=== PATIENT | female | born 2000 | race Caucasian/White ===

== ENCOUNTER 2019-02-20 19:00 | Observation (INO) ==
[2019-02-20] MEDS ORDERED: 0.9 % Sodium Chloride 1,000 ML IVC ONE ×2 (19:55→22:25)
[2019-02-20] MEDS ORDERED: Ondansetron 4 MG/2 ML VIAL IVP ONE (19:55)
[2019-02-20] MEDS ORDERED: cefTRIAXone 1,000 MG in 0.9 % Sodium Chloride Mini Bag 100 ML IVPB ONE (19:55)
[2019-02-20 20:34] LABS: Bilirubin,Urine Small (Negative); Blood,Urine Trace (Negative); Clarity,Urine Turbid (Clear); Color,Urine Orange (Yellow); Glucose,Urine (UA) Normal (Normal); Ketones,Urine Trace mg/dL (Negative); Leukocyte Esterase,Urine Large (Negative); Nitrite,Urine Positive (Negative); PH,Urine 5.5 pH Units (5.0-8.0); Protein,Urine 100 mg/dL (Neg-Trace); Specific Gravity,Urine 1.019 (1.010-1.025); Urobilinogen,Urine Normal (Normal)
[2019-02-20 20:36] LABS: Bacteria,Urine Moderate per hpf (None-Few); Squamous Epithelial Cell,Urine Many per lpf (None-Few); WBC,Urine TNTC per hpf (0-3)
[2019-02-20 20:45] LABS: Hematocrit 38.2 % (35.3-44.9); Hemoglobin 12.5 g/dL (11.5-15.4); Mean Corpuscular HGB Conc 32.7 g/dL (31.6-35.5); Mean Corpuscular Hemoglobin 29.6 pg (28.0-33.3); Mean Corpuscular Volume 90.5 fL (83.0-100.0); Mean Platelet Volume 11.2 fL (9.4-12.4); Platelet Count 185 K/mcL (140-400); Red Blood Count 4.22 M/mcL (3.82-4.97); Red Cell Distribution Width 13.5 % (11.5-14.5); White Blood Count 20.7 K/mcL (4.3-11.1)
--- NOTE | 2019-02-20 20:47 | Emergency Department Note ---
Disposition Clinical Impression: Pyelonephritis Disposition: Admitted As Inpatient Condition: Fair Instructions: Urinary Tract Infection in Women (ED) Referrals: Yakelin Benavides CNP [Primary Care Provider] - Time of Disposition: 20:30 General Adult HPI - General Chief complaint: ED Urogenital-Female Stated complaint: fever,vomiting Time Seen by Provider: 02/20/19 19:18 Source: patient Limitations: no limitations Nursing Notes Reviewed: Yes Vital Signs Reviewed: Yes - History of Present Illness HPI Narrative: 18-year-old female presents emergency Department with concerns of back pain, abdominal pain, dysuria. Patient was seen in urgent care yesterday and diagnosed with a urinary tract infection. She has a history of pyelonephritis in the past. She states she is taken 2 doses of Cipro over the past 24 hours however she was unable to tolerate the medication today and vomited despite taking Zofran. Patient reports fevers throughout the day, took ibuprofen prior to arrival to the emergency department. Pain Scale: 6 - Related Data Home Medications Medication Instructions Recorded Confirmed Acetaminophen [Tylenol] 1,000 mg PO Q6HR PRN 02/20/19 02/20/19 Ciprofloxacin HCl [Cipro] 500 mg PO BID 02/20/19 02/20/19 Cranberry Conc/C/Bacill Coag [Azo 2 tab PO TID PRN 02/20/19 02/20/19 Cranberry Tablet] Ibuprofen [Motrin] 1 tab PO TID PRN 02/20/19 02/20/19 Norgestimate-Ethinyl Estradiol 1 tab PO DAILY 02/20/19 02/20/19 [Sprintec 28 Day Tablet] Ondansetron ODT [Zofran ODT] 4 mg SL QID PRN 02/20/19 02/20/19 Allergies Allergy/AdvReac Type Severity Reaction Status Date / Time No Known Allergies Allergy Verified 02/20/19 19:03 All systems ED: reviewed and negative except as stated. Review of Systems: As Per HPI Past Medical History - Past Medical History Attestation: Yes The following information was validated with the patient. Source: patient Medical history: Reports: no medical history Psychiatric history: Reports: no psych history - Social History Smoking Status: Never smoker Alcohol use: Reports: none Drug use: Reports: none Physical Exam General: Alert and in no acute distress Skin: Warm, dry, intact Head: Normocephalic and atraumatic Neck: Supple, trachea midline and no tenderness Cardiovascular: Tachycardia, no murmur, normal perfusion Respiratory: CTAB, no wheezing, cough, or respiratory distress Musculoskeletal: Normal strength, CVA tenderness worse on right GI: Soft, tenderness to palpation of the suprapubic region without evidence of rigidity, guarding, rebound. nondistended. Bowel sounds present Neuro: A&O to person, place, time and situation. No focal deficits noted on exam Psychiatric: cooperative and appropriate mood and affect. - General Limitations: no limitations General appearance: alert, in no apparent distress Course Vital Signs Temperature 98.4 F 02/20/19 19:04 Pulse Rate 114 02/20/19 19:04 Respiratory Rate 15 02/20/19 19:04 Blood Pressure 115/75 02/20/19 19:04 O2 Sat by Pulse Oximetry 100 02/20/19 19:04 Temperature 98.4 F 02/20/19 20:00 Pulse Rate 103 02/20/19 20:26 Respiratory Rate 15 02/20/19 20:00 Blood Pressure 120/77 02/20/19 20:26 O2 Sat by Pulse Oximetry 100 02/20/19 20:26 Oxygen Delivery Oxygen Delivery Room Air Medical Decision Making - [facility] Narrative Medical decision making narrative: Patient was given ceftriaxone and a liter fluid in the emergency department. She will likely has pyelonephritis. She is not tolerating by mouth intake well at home. She will be admitted to the hospital for further care and evaluation. - Medical Records Medical records reviewed: Yes I reviewed the patient's medical records. - Lab Data Lab results reviewed: Yes I reviewed the patient's lab results. Lab Results 02/20/19 Range/Units 20:11 Urine Color [place] A (Yellow) Urine Clarity Turbid A (Clear) Urine pH 5.5 (5.0-8.0) pH Units Ur Specific [place] 1.019 (1.010-1.025) Urine Protein 100 H (Neg-Trace) mg/dL Urine Glucose (UA) Normal (Normal) mg/dL Urine Ketones Trace H (Negative) mg/dL Urine Blood Trace H (Negative) Urine Nitrite Positive A (Negative) Urine Bilirubin Small H (Negative) Urine Urobilinogen Normal (Normal) mg/dL Ur Leukocyte Esterase Large H (Negative) - Radiology Data Radiology results reviewed: Yes I reviewed the patient's radiology results.
[2019-02-20 21:00] LABS: RBC,Urine 0-3 per hpf (0-3)
[2019-02-20 21:01] LABS: Hyaline Casts,Urine Few per lpf (None-Few)
[2019-02-20 21:07] LABS: Calcium 8.2 mg/dL (8.6-10.3); Potassium 3.8 mEq/L (3.5-5.1)
[2019-02-20 21:21] LABS: Lymphocytes # 0.4 K/mcL (0.6-4.6); Monocytes # 0.8 K/mcL (0.0-1.3); Neutrophils # 19.5 K/mcL (1.6-8.9); Platelet Estimate Normal (Normal)
[2019-02-20] MEDS ORDERED: Acetaminophen 325 MG TABLET PO PRN (22:27)
[2019-02-20] MEDS ORDERED: Naloxone 0.4 MG/ML INJ IVP PRN (22:27)
[2019-02-20] MEDS ORDERED: Isovue-370 500 ML BOTTLE IVP ONE (22:27)
[2019-02-20] MEDS ORDERED: *HR* OxyCODONE Immed Rel 5 MG TABLET PO PRN (22:27)
--- NOTE | 2019-02-20 22:55 | Internal Med History&Physical ---
Date of Encounter: 02/20/19 Time of Encounter: 22:53 Internal Medicine - H&P: HPI Chief complaint: flank pain Admitted From: Home Plans for Post Hospital Care: Home History of present illness: Elsa Smith is a 18 year old lady who went to urgent care yesterday with complaints of 4 days of urinary urgency and frequency that progressed to right flank pain. He was diagnosed with a UTI and given ciprofloxacin. She says she then started to get fever and chills with profuse nausea and vomiting and was unable to tolerate her oral medications, drink or eat anything and so came to the ER today. He was notably tachycardic on arrival and seen to have a leukocyte count of 20.7. Her mother reports that her urine output has significantly reduced stating that she has only urinated once today. Her serum creatinine is seen to be elevated at 2.42. Her urinalysis was remarkably suggestive of an infection she is admitted for further care. Vitals: Reviewed General: Well-developed, lying in bed with notable malaise. Skin: Dry, warm and flushed. HEENT: Dry mucous membranes. No conjunctivae pallor. Neck: No lymphadenopathy. No JVD. No carotid bruits. No palpable thyroid. Chest: Normal thoracic expansion. Normal breath sounds. Clear to auscultation. Heart: Normal S1 & S2; rhythmic. No rubs or murmurs. Abdomen: Non-distended, soft and notably tender to palpation in the right flank with + right CVA tenderness. Extremities: No clubbing, cyanosis or edema. No calf tenderness. Normal distal pulses. Neurological: Awake, alert and oriented to person, place and time. No focal deficits. Psych: Affect appropriate. Assessment/Plan 1. Sepsis secondary to pyelonephritis: As evidenced by tachycardia and leukocytosis with urinary symptoms and a positive UA. She is unable to take oral medications and will require parenteral treatment. Will get urine and blood cultures. Start ceftriaxone 1gr daily pending culture results. She will benefit from kidney imaging to ensure she does not have an abscess given the duration of symptoms and degree of systemic illness. She is at high risk for recurrent UTIs given her childhood history of ureteral valve problems leading to reflux requiring surgical intervention. 2. Stage III acute kidney injury: Notable. Likely pre-renal in etiology from dehydration secondary to poor intake and fluid losses. Will replete with volume and recheck. Will also rule out obstructive component with imaging. Past Med Surg Social Fam HX - Past Medical History Medical history: no medical history Psychiatric history: no psych history - Past Surgical History Additional surgical history: kidney surgery for reflux - Social History Smoking Status: Never smoker Smokeless Tobacco Status: No Alcohol use: none Drug use: none - Family History Grandfather Hx Family Endocrine Disorder: Yes (DM) Internal Medicine - H&P: Meds Acetaminophen [Tylenol] 1,000 mg PO Q6HR PRN 02/20/19 [History] Ciprofloxacin HCl [Cipro] 500 mg PO BID 02/20/19 [History] Cranberry Conc/C/Bacill Coag [Azo Cranberry Tablet] 2 tab PO TID PRN 02/20/19 [History] Ibuprofen [Motrin] 1 tab PO TID PRN 02/20/19 [History] Norgestimate-Ethinyl Estradiol [Sprintec 28 Day Tablet] 1 tab PO DAILY 02/20/19 [History] Ondansetron ODT [Zofran ODT] 4 mg SL QID PRN 02/20/19 [History] Allergy/AdvReac Type Severity Reaction Status Date / Time No Known Allergies Allergy Verified 02/20/19 19:03 All Systems PM: A 10-system review of systems was performed and is negative for pertinent findings except as documented above in the HPI. - Constitutional Vitals: Temp Pulse Resp BP Pulse Ox 99.1 F 95 16 106/61 100 02/20/19 21:01 02/20/19 21:01 02/20/19 21:01 02/20/19 21:01 02/20/19 21:01 Exam: . Internal Med - H&P Results - Labs CBC & Chem 7: 02/20/19 20:30 02/20/19 20:30 Labs: Short CBC 02/20/19 Range/Units 20:30 WBC 20.7 H (4.3-11.1) K/mcL Hgb 12.5 (11.5-15.4) g/dL Hct 38.2 (35.3-44.9) % Plt Count 185 (140-400) K/mcL Neutrophils # 19.5 H (1.6-8.9) K/mcL BMP 02/20/19 20:30 Sodium 139 Potassium 3.8 Chloride 103 Carbon Dioxide 21 L BUN 25 H Creatinine 2.42 H Glucose 88 Calcium 8.2 L Urine 02/20/19 Range/Units 20:11 Urine Color [place] A (Yellow) Urine Clarity Turbid A (Clear) Urine pH 5.5 (5.0-8.0) pH Units Ur Specific [place] 1.019 (1.010-1.025) Urine Protein 100 H (Neg-Trace) mg/dL Urine Glucose (UA) Normal (Normal) mg/dL - Time Spent With Patient Total time spent is greater than 50% in coordination of care (as documented) at patient's floor/unit and/or counseling patient: Greater than 35 minutes
[2019-02-21] MEDS: 0.9 % Sodium Chloride 1,000 ML IVC SCH ×3 (00:20→19:00)
[2019-02-21] MEDS: traMADol 50 MG TABLET PO PRN ×2 (01:02→12:26)
[2019-02-21 05:23] LABS: Basophils % 0.1 %; Eosinophils % 0.1 %; Hematocrit 35.7 % (35.3-44.9); Hemoglobin 11.3 g/dL (11.5-15.4); Immature Granulocytes % 1.4 % (0-4); Lymphocytes # 1.7 K/mcL (0.6-4.6); Lymphocytes % 9.5 %; Mean Corpuscular HGB Conc 31.7 g/dL (31.6-35.5); Mean Corpuscular Hemoglobin 29.2 pg (28.0-33.3); Mean Corpuscular Volume 92.2 fL (83.0-100.0); Mean Platelet Volume 11.2 fL (9.4-12.4); Monocytes # 1.6 K/mcL (0.0-1.3); Monocytes % 8.9 %; Neutrophils # 14.5 K/mcL (1.6-8.9); Platelet Count 165 K/mcL (140-400); Red Blood Count 3.87 M/mcL (3.82-4.97); Red Cell Distribution Width 13.4 % (11.5-14.5); White Blood Count 18.1 K/mcL (4.3-11.1)
[2019-02-21 05:48] LABS: Calcium 7.2 mg/dL (8.6-10.3); Potassium 3.6 mEq/L (3.5-5.1)
[2019-02-21 06:03] LABS: Reactive Lymphocytes Present (Not Present)
[2019-02-21 06:04] LABS: Platelet Estimate Normal (Normal)
[2019-02-21] MEDS: Ondansetron 4 MG/2 ML VIAL IVP PRN ×2 (06:40→16:44)
--- NOTE | 2019-02-21 08:54 | Internal Med Progress Note ---
<Roosevelt Isaac - Last Filed: 02/21/19 12:50> Hospitalist Progress Note - Encounter Date of Encounter: 02/21/19 - Exam Vitals: Temp Pulse Resp BP Pulse Ox 97.9 F 94 15 98/62 96 02/21/19 11:20 02/21/19 11:20 02/21/19 11:20 02/21/19 11:20 02/21/19 11:20 - Assessment and Plan (1) Acute pyelonephritis Current Visit: Yes Status: Acute (2) Acute renal failure Current Visit: Yes Status: Suspected (3) Sepsis Current Visit: Yes Status: Suspected Assessment and Plan: Pt presented with tachycardia, leukocytosis and UTI. - Time Spent with Patient Total time spent is greater than 50% in coordination of care (as documented) at patient's floor/unit and/or counseling patient: Internal Medicine: Result - Labs CBC & Chem 7: 02/21/19 05:05 02/21/19 05:05 Labs: Short CBC 02/20/19 02/21/19 Range/Units 20:30 05:05 WBC 20.7 H 18.1 H (4.3-11.1) K/mcL Hgb 12.5 11.3 L (11.5-15.4) g/dL Hct 38.2 35.7 (35.3-44.9) % Plt Count 185 165 (140-400) K/mcL Neutrophils # 19.5 H 14.5 H (1.6-8.9) K/mcL BMP 02/20/19 02/21/19 20:30 05:05 Sodium 139 140 Potassium 3.8 3.6 Chloride 103 109 H Carbon Dioxide 21 L 17 L BUN 25 H 20 Creatinine 2.42 H 1.54 H Glucose 88 92 Calcium 8.2 L 7.2 L Urine 02/20/19 Range/Units 20:11 Urine Color [place] A (Yellow) Urine Clarity Turbid A (Clear) Urine pH 5.5 (5.0-8.0) pH Units Ur Specific [place] 1.019 (1.010-1.025) Urine Protein 100 H (Neg-Trace) mg/dL Urine Glucose (UA) Normal (Normal) mg/dL - Impressions Impressions Abdomen/Pelvis CT 02/20/19 22:27 IMPRESSION: There is perinephric fat stranding seen on the right, compatible with right-sided pyelonephritis. No obvious renal abscess is seen, but a smaller abscess would not be detected without intravenous contrast. D/ / Antoino Greenfield MD / Antonio Greenfield MD Interpreting Provider: Antonio Greenfield MD Consult Discharge Plan - Plan Referrals: Yakelin Benavides, [employer] [Primary Care Provider] - - Attending Attestation I examined this patient and my medical decision-making was reviewed with the Resident Physician on 02/21/19. I agree with the documented findings, disposition and treatment plan as described except to the extent set forth below. Ms Smith is currently in observation for acute pyelonephritis. She remains moderate to high risk. Ms Smith is still not eating well. Has pain on R side. No further fever. Tolerating IV fluids and IV abx. Family at bedside. Exam - comfortable lying flat. Agree with current plan. Continue IV abx and fluids. Plan urology consult due to prior anatomical issues. <Roxana Mckeon - Last Filed: 02/21/19 18:25> Hospitalist Progress Note - Encounter Date of Encounter: 02/21/19 Time of Encounter: 08:53 - Subjective Interval History: Patient seen and examined at bedside earlier this morning. Patient was resting comfortably accompanied by mother. Currently managed with Rocephin day #2. She did note that she was mildly nauseous and experiencing fevers/chills. She had attempted to tolerate food by mouth. Did note that she was able to take sips of water and eat small amounts of food. Otherwise no acute distress. White count is trending down but remains at 18.1. Plan to continue antibiotics. Given patient's history of vesicoureteral reflux, will consult urology. Additionally given patient's acute kidney injury, will consider consult to nephrology. - Exam Vitals: Temp Pulse Resp BP Pulse Ox 98.3 F 92 14 94/60 98 02/21/19 07:15 02/21/19 07:15 02/21/19 07:15 02/21/19 07:15 02/21/19 07:15 Exam: GEN: Pleasant 18-year-old female resting comfortably at bedside. Vitals stable. No acute distress. AAOx3 HEENT: Atraumatic, Normocephalic, PERRLA, EOMI NECK: Supple, no lymphadenopathy, no JVD CARDIAC: RRR, s1 and s2 present, no murmurs, rubs, gallops PULM: CTAB, not in respiratory distress, no wheezes, rales, crackles, rhonchi ABD: Soft, mild suprapubic tenderness, non-distended, no guarding or rebound tenderness. Bowel sounds present. Right-sided CVA tenderness. EXT: No peripheral edema. No calf tenderness, cyanosis, clubbing NEURO: CN 2-12 grossly intact. No focal neurologic deficits. Follows commands PSYCH: Appropriate mood and affect - Assessment and Plan (1) Pyelonephritis Current Visit: Yes Status: Acute Assessment and Plan: This is a 18-year-old female with past medical history significant for vesicoureteral reflux status post repair at age 3 who presents today after 4 days of urinary urgency, frequency, that has progressed to right flank pain, fevers/chills, nausea, vomiting. - Had been seen outpatient prescribed Cipro. However, patient was unable to tolerate PO medications - Initially in the ED, patient was tachycardic = 114, with leukocytosis = 20.7. - Initial urinalysis: [place], turbid urine. + Nitrite, + large leukocyte esterase, + white blood cells, + monitor urine bacteria - CT of abdomen/pelvis without contrast (02/20/19): Perinephric fat stranding on the right compatible with right-sided pyelonephritis. No renal abscess seen. - Additionally, BUN/Cr = 25/2.42 - Patient is status post IV fluids and IV Rocephin in the ED. Admitted for further management of pyelonephritis due to inability to tolerate by mouth intake - Today, patient was seen and examined at bedside. She reports generalized body aches, fevers/chills. On exam she has suprapubic tenderness, right flank pain. White count has slightly improved = 18.1 today. Creatinine improved = 1.54 today. PLAN: Patient admitted with sepsis likely secondary to pyelonephritis. ROJELIO is likely secondary to dehydration, and has been improving with fluids. - Urology on board. Recommendations appreciated - due to history of vesicoureteral reflux and multiple UTIs in the past 2-3 years - Nephrology on board. Recommendations appreciated - due to pyelonephritis and acute kidney injury with history of multiple UTIs in the past. - Continue with Rocephin 2 g daily. Currently day #2. Per discussion with urology, patient will likely need treatment for 2 weeks. Transition to by mouth medication patient was tolerating by mouth. - Follow up urine and blood cultures - Continue with IV maintenance fluids given patient still having difficulty to lerating by mouth intake - IV pain and nausea control as needed - We will hold off on further imaging, given patient is slightly improved on antibiotics and fluids. If patient fails to improve any further, may consider repeat CT abdomen and pelvis with contrast (2) Sepsis Current Visit: Yes Status: Suspected Assessment and Plan: Patient was initially septic on presentation due to his tachycardia, leukocytosis, source of infection with UTI. - Patient is still with leukocytosis. - Tachycardia is improving with IV fluids. Patient has remained afebrile PLAN: - Continue to monitor - IV fluids as long as patient is not tolerating PO - Continue antibiotics (3) Acute kidney injury Current Visit: Yes Status: Acute Assessment and Plan: BUN/Cr = 25/2.42 on admission - Improved with IV fluids - CT of abdomen/pelvis without contrast (02/20/19): Perinephric fat stranding on the right compatible with right-sided pyelonephritis. No renal abscess seen. - Current BUN/Cr = 20/1.54 PLAN: Patient likely has acute kidney injury secondary to dehydration. Obstructive processes ruled out with CT negative for any abscess. We will continue to monitor for improvement with hydration - Nephrology consulted. Recommendations appreciated. - Continue IV fluids - Follow-up outpatient nephrology after discharge (4) History of vesicoureteral reflux Current Visit: Yes Status: Acute Assessment and Plan: History of vesicoureteral reflux. PLAN: - Continue with plan as above. - Urology consulted. Recommendations appreciated. - We will likely need voiding cystourethrogram outpatient after resolution of infection - Follow up outpatient urology after discharge (5) DVT prophylaxis Current Visit: Yes Status: Acute Assessment and Plan: PLAN: - SCDs DVT Prophylaxis: SCDs - Time Spent with Patient Total time spent is greater than 50% in coordination of care (as documented) at patient's floor/unit and/or counseling patient: less than 15 minutes Plan of Care Discussed with: patient Internal Medicine: Result - Labs CBC & Chem 7: 02/21/19 05:05 02/21/19 05:05 Labs: Short CBC 02/20/19 02/21/19 Range/Units 20:30 05:05 WBC 20.7 H 18.1 H (4.3-11.1) K/mcL Hgb 12.5 11.3 L (11.5-15.4) g/dL Hct 38.2 35.7 (35.3-44.9) % Plt Count 185 165 (140-400) K/mcL Neutrophils # 19.5 H 14.5 H (1.6-8.9) K/mcL BMP 02/20/19 02/21/19 20:30 05:05 Sodium 139 140 Potassium 3.8 3.6 Chloride 103 109 H Carbon Dioxide 21 L 17 L BUN 25 H 20 Creatinine 2.42 H 1.54 H Glucose 88 92 Calcium 8.2 L 7.2 L Urine 02/20/19 Range/Units 20:11 Urine Color [place] A (Yellow) Urine Clarity [place] A (Clear) Urine pH 5.5 (5.0-8.0) pH Units Ur Specific [place] 1.019 (1.010-1.025) Urine Protein 100 H (Neg-Trace) mg/dL Urine Glucose (UA) Normal (Normal) mg/dL - Impressions Impressions Abdomen/Pelvis CT 02/20/19 22:27 IMPRESSION: There is perinephric fat stranding seen on the right, compatible with right-sided pyelonephritis. No obvious renal abscess is seen, but a smaller abscess would not be detected without intravenous contrast. D/ / Antonio Greenfield MD / Antonio Greenfield MD Interpreting Provider: Antonio Greenfield MD <Roosevelt Isaac - Last Filed: 02/21/19 12:50> (2) Acute renal failure Qualifiers: Acute renal failure type: with acute tubular necrosis Qualified Code(s): N17.0 - Acute kidney failure with tubular necrosis (3) Sepsis Qualifiers: Sepsis type: Escherichia coli Qualified Code(s): A41.51 - Sepsis due to Escherichia coli [E. coli] <Roxana Mckeon - Last Filed: 02/21/19 18:25> (2) Sepsis Qualifiers: Sepsis type: Escherichia coli Qualified Code(s): A41.51 - Sepsis due to Escherichia coli [E. coli]
[2019-02-21] MEDS ORDERED: cefTRIAXone 1,000 MG in Water for inj. (sterile) 10 ML IVPB SCH (09:00)
[2019-02-21] MEDS ORDERED: 0.9 % Sodium Chloride 1,000 ML ONE (12:23)
[2019-02-21 16:42] LABS: Uric Acid 5.1 mg/dL (2.3-7.6)
[2019-02-21 17:14] LABS: Sodium, Urine 85.6 mEq/L
--- NOTE | 2019-02-21 23:23 | Nephrology Consult Note ---
Date of Encounter: 02/21/19 Time of Encounter: 12:00 Assessment and Plan (1) Acute kidney injury Current Visit: Yes Status: Acute Elevated SCr in the setting of pyelonephritis with sepsis, N/V and decerased po intake Agree with IVF Agree with iv abx Avoid nephrotoxins if possible Will check uric acid and cpk levels Will check urine studies (2) Acute pyelonephritis Current Visit: Yes Status: Acute History of Present Illness - Reason for Consult Consult date: 02/21/19 Acute Kidney Injury Requesting physician: Roxana Mckeon - History of Present Illness 18 y o female with no sig PMH except recurrent UTIs of admitted with urinary urgency, frequency and flank pain with associated fevers/chills and nausea/vomiting. Pt was diagnosed with pyelonephritis on CT and started n iv abx. SCr noted at 2.42 improving to 1.53 overnight with baseline at 0.74 as of 2013. Pt seen and examined Past Med Surg Social Fam HX - Past Medical History Medical history: no medical history Psychiatric history: no psych history - Past Surgical History Additional surgical history: kidney surgery for reflux - Social History Smoking Status: Never smoker Smokeless Tobacco Status: No Alcohol use: none Drug use: none - Family History Grandfather Hx Family Endocrine Disorder: Yes (DM) Medications and Allergies Acetaminophen [Tylenol] 1,000 mg PO Q4H PRN 02/20/19 [History] Ciprofloxacin HCl [Cipro] 500 mg PO BID 02/20/19 [History] Norgestimate-Ethinyl Estradiol [Sprintec 28 Day Tablet] 1 tab PO DAILY 02/20/19 [History] Ondansetron ODT [Zofran ODT] 4 mg SL QID PRN 02/20/19 [History] Cetirizine HCl [Zyrtec] 10 mg PO DAILY 02/21/19 [History] Ibuprofen [Ibu-200] 800 mg PO Q8H PRN 02/21/19 [History] Phenazopyridine [Pyridium] 200 mg PO TID PRN 02/21/19 [History] Allergy/AdvReac Type Severity Reaction Status Date / Time No Known Allergies Allergy Verified 02/21/19 08:26 Exam - Vital Signs Vital signs: Initial Vital Signs Temp Pulse Resp BP Pulse Ox 98.4 F 114 15 115/75 100 02/20/19 19:04 02/20/19 19:04 02/20/19 19:04 02/20/19 19:04 02/20/19 19:04 Vital Signs - Last 8 Hours Temp Pulse Resp BP Pulse Ox 02/21/19 20:49 99.6 F 02/21/19 19:32 99.6 F 103 14 104/69 98 02/21/19 15:56 99.1 F 97 14 100/67 97 Intake and Output 02/21/19 02/21/19 02/21/19 07:59 15:59 23:59 Intake Total 1000 / 1000 Output Total 350 / 1075 450 / 1075 275 / 1075 Balance 650 / -75 -450 / -75 -275 / -75 Intake: IV Fluids 1000 / 1000 0.9 % Sodium Chloride 1,000 ML 1000 / 1000 @ 250 mls/hr IVC .Q4H [facility] Rx#: [id number] Oral 0 / 0 Output: Urine 350 / 1075 450 / 1075 275 / 1075 Other: # Voids 0 2 # Bowel Movements 0 0 Results - Lab Results 02/21/19 05:05 02/21/19 05:05 Most recent lab results 02/21/19 16:20 Urine Creatinine 89 Urine Sodium 85.6 Consult Discharge Plan - Plan Referrals: Yakelin Benavides CNP [Primary Care Provider] -
[2019-02-21] MEDS: *HR* Promethazine 25 MG/ML VIAL IVP PRN (23:24)
[2019-02-21] MEDS: Acetaminophen IV 1,000 MG/100 ML INFUS..BTL IVPB SCH (23:24)
[2019-02-22] MEDS ORDERED: Ondansetron 4 MG/2 ML VIAL IVP ONE (04:53)
[2019-02-22] MEDS: Acetaminophen IV 1,000 MG/100 ML INFUS..BTL IVPB SCH ×4 (05:13→23:11)
[2019-02-22 06:14] LABS: Basophils % 0.1 %; Eosinophils # 0.1 K/mcL (0.0-0.6); Eosinophils % 0.5 %; Hematocrit 38.4 % (35.3-44.9); Immature Granulocytes % 0.6 % (0-4); Lymphocytes # 2.3 K/mcL (0.6-4.6); Lymphocytes % 16.3 %; Mean Corpuscular HGB Conc 31.3 g/dL (31.6-35.5); Mean Corpuscular Hemoglobin 28.9 pg (28.0-33.3); Mean Corpuscular Volume 92.5 fL (83.0-100.0); Mean Platelet Volume 11.5 fL (9.4-12.4); Monocytes # 1.3 K/mcL (0.0-1.3); Monocytes % 9.2 %; Neutrophils # 10.4 K/mcL (1.6-8.9); Platelet Count 226 K/mcL (140-400); Red Blood Count 4.15 M/mcL (3.82-4.97); Red Cell Distribution Width 13.6 % (11.5-14.5); Segmented Neutrophils % 73.3 %; White Blood Count 14.1 K/mcL (4.3-11.1)
[2019-02-22 06:32] LABS: BUN/Creatinine Ratio 11 (6-26); Blood Urea Nitrogen 10 mg/dL (6-20); Calcium 8.4 mg/dL (8.6-10.3); Carbon Dioxide 22 mEq/L (23-29); Chloride 107 mEq/L (98-107); Glucose 97 mg/dL (70-105); Osmolality,Calculated 289 (280-300); Potassium 3.4 mEq/L (3.5-5.1); Sodium 140 mEq/L (136-145); eGFR For African Americans > 60 (> 60); eGFR For Non-African Americans > 60 (> 60)
[2019-02-22] MEDS: 0.9 % Sodium Chloride 1,000 ML IVC SCH ×2 (07:20→19:44)
[2019-02-22] MEDS: *HR* Promethazine 25 MG/ML VIAL IVP PRN ×2 (09:17→17:59)
[2019-02-22] MEDS: cefTRIAXone 2,000 MG in Water for inj. (sterile) 20 ML IVP SCH (09:17)
--- NOTE | 2019-02-22 09:55 | Urology - Consult Note ---
<Sherine Avila N - Last Filed: 02/22/19 09:47> Date of Encounter: 02/22/19 Time of Encounter: 09:10 - Assessment and Plan (1) Acute kidney injury Current Visit: Yes Status: Acute Assessment and plan: Patient is 18-year-old female who presents with acute kidney injury and ascending Escherichia coli urinary tract infection. Patient is receiving IV fluids and antibiotics. On initial presentation, serum creatinine was 2.42, and it is now improved to 0.88. Nephrology has been consulted. (2) Acute pyelonephritis Current Visit: Yes Status: Acute Assessment and plan: Patient is a 18-year-old female who presents with acute right pyelonephritis. Urine culture collected at urgent care is positive for pansensitive Escherichia coli. Vital signs are currently stable and afebrile. White blood cell count has improved to 14.1. Renal function has recovered. Patient is receiving IV Rocephin. Our plan is to continue IV fluids and antibiotics while patient is admitted, and she will require an additional 14 days of oral culture sensitive antibiotics. We will also plan to proceed with an outpatient VCUG and follow-up with Dr. Mcclure within [address] Mcclure will be in to reevaluate patient this afternoon. 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 I discussed the VCUG study with patient's mother, and she remembers obtaining this study during patient's childhood. We will plan to obtain a VCUG after infection is cleared. Urology CN:HPI Consult date: 02/22/19 Reason for consult Urology: Other (UTI) Requesting physician: Roxana Mckeon History of present illness: Patient is a 18-year-old female who presents with acute right pyelonephritis. Patient reports a 4-5 day history of dysuria, urinary urgency and frequency. Patient initially presented to urgent care where she was diagnosed with a urinary tract infection and given oral Cipro. Patient experienced intractable nausea, vomiting and developed a fever with right flank pain. Patient's mother subsequently brought her to the emergency department for further evaluation. Patient underwent a CT of the abdomen and pelvis revealing no hydronephrosis or obstructive calculi, but patient was found to have right perinephric stranding consistent with pyelonephritis. Patient's mother reports patient experienced 4- 5 urinary tract infections since her VUR repair at age 3. Patient's mother states she has never been hospitalized for a urinary tract infection or pyelonephritis, and outpatient oral antibiotics typically work well for her. Currently, patient is lying in bed resting in no apparent distress. Patient's mother states she has not experienced any gross hematuria or incontinence. Patient's mother denies any known family history of renal stones or malignancy. Past Med Surg Social Fam HX - Past Medical History Medical history: no medical history Psychiatric history: no psych history - Past Surgical History Additional surgical history: kidney surgery for reflux - Social History Smoking Status: Never smoker Smokeless Tobacco Status: No Alcohol use: none Drug use: none - Family History Grandfather Hx Family Endocrine Disorder: Yes (DM) Medications and Allergies Acetaminophen [Tylenol] 1,000 mg PO Q4H PRN 02/20/19 [History] Ciprofloxacin HCl [Cipro] 500 mg PO BID 02/20/19 [History] Norgestimate-Ethinyl Estradiol [Sprintec 28 Day Tablet] 1 tab PO DAILY 02/20/19 [History] Ondansetron ODT [Zofran ODT] 4 mg SL QID PRN 02/20/19 [History] Cetirizine HCl [Zyrtec] 10 mg PO DAILY 02/21/19 [History] Ibuprofen [Ibu-200] 800 mg PO Q8H PRN 02/21/19 [History] Phenazopyridine [Pyridium] 200 mg PO TID PRN 02/21/19 [History] Allergy/AdvReac Type Severity Reaction Status Date / Time No Known Allergies Allergy Verified 02/21/19 08:26 Review of Systems - Constitutional chills, fatigue, fever(s) - EENT Nose, mouth and throat: no dizziness, no headache(s) - Cardiovascular no chest pain, no diaphoresis, no dyspnea, no edema - Respiratory no cough, no dyspnea - Gastrointestinal abdominal pain, nausea, vomiting - Genitourinary Genitourinary: dysuria, flank pain, urinary frequency, urinary hesitancy, urinary urgency, no difficulty urinating, no hematuria, no urinary incontinence - Musculoskeletal back pain, no muscle weakness - Integumentary no erythema, no rash - Neurological no confusion, no syncope - Psychiatric no anxiety, no confusion - Hematologic/Lymphatic no easy bleeding, no easy bruising - Allergic/Immunologic no throat swelling, no wheezing Exam Initial Vital Signs Temp Pulse Resp BP Pulse Ox 98.4 F 114 15 115/75 100 02/20/19 19:04 02/20/19 19:04 02/20/19 19:04 02/20/19 19:04 02/20/19 19:04 - General physical appearance Present: well developed, no distress, no pain - Eyes Present: other (Patient resting with eyes closed) - ENT Present: normal nares, no congestion - Neck Present: no masses, trachea midline, no lymphadenopathy - Respiratory Present: normal respiratory effort - Cardiovascular Cardiovascular exam IM: RRR - Abdomen Abdomen: Present: soft. Absent: distended - Genitourinary Present: other (right cvat) - Integumentary Present: no rash, no abnormal pigmentation - Neurologic Present: normal coordination - Musculoskeletal Present: other (no pedal edema ) Urology Results - Labs 02/22/19 05:13 02/22/19 05:13 Abnormal lab results WBC 14.1 K/mcL (4.3-11.1) H 02/22/19 05:13 Hgb 11.3 g/dL (11.5-15.4) L 02/21/19 05:05 MCHC 31.3 g/dL (31.6-35.5) L 02/22/19 05:13 10.4 K/mcL (1.6-8.9) H 02/22/19 05:13 0.4 K/mcL (0.6-4.6) L 02/20/19 20:30 1.6 K/mcL (0.0-1.3) H 02/21/19 05:05 Present (Not Present) A 02/21/19 05:05 Potassium 3.4 mEq/L (3.5-5.1) L 02/22/19 05:13 Chloride 109 mEq/L (98-107) H 02/21/19 05:05 Carbon Dioxide 22 mEq/L (23-29) L 02/22/19 05:13 BUN 25 mg/dL (6-20) H 02/20/19 20:30 1.54 mg/dL (0.60-1.20) H 02/21/19 05:05 Est GFR ( Amer) 52 (> 60) L 02/21/19 05:05 Est GFR (Non-Af Amer) 43 (> 60) L 02/21/19 05:05 Calcium 8.4 mg/dL (8.6-10.3) L 02/22/19 05:13 [place] (Yellow) A 02/20/19 20:11 Turbid (Clear) A 02/20/19 20:11 100 mg/dL (Neg-Trace) H 02/20/19 20:11 Trace mg/dL (Negative) H 02/20/19 20:11 Trace (Negative) H 02/20/19 20:11 Positive (Negative) A 02/20/19 20:11 Small (Negative) H 02/20/19 20:11 Ur Leukocyte Esterase Large (Negative) H 02/20/19 20:11 TNTC per hpf (0-3) H 02/20/19 20:11 Ur Squamous Epith Cells Many per lpf (None-Few) H 02/20/19 20:11 Moderate per hpf (None-Few) H 02/20/19 20:11 Ur Culture Indicated? YES (NO) A 02/20/19 20:11 Diabetes panel 02/22/19 Range/Units 05:13 Sodium 140 (136-145) mEq/L Potassium 3.4 L (3.5-5.1) mEq/L Chloride 107 (98-107) mEq/L Carbon Dioxide 22 L (23-29) mEq/L BUN 10 (6-20) mg/dL Creatinine 0.88 (0.60-1.20) mg/dL Glucose 97 (70-105) mg/dL Calcium 8.4 L (8.6-10.3) mg/dL Calcium panel 02/22/19 Range/Units 05:13 Calcium 8.4 L (8.6-10.3) mg/dL Pituitary panel 02/22/19 Range/Units 05:13 Sodium 140 (136-145) mEq/L Potassium 3.4 L (3.5-5.1) mEq/L Chloride 107 (98-107) mEq/L Carbon Dioxide 22 L (23-29) mEq/L BUN 10 (6-20) mg/dL Creatinine 0.88 (0.60-1.20) mg/dL Glucose 97 (70-105) mg/dL Calcium 8.4 L (8.6-10.3) mg/dL Adrenal panel 02/22/19 Range/Units 05:13 Sodium 140 (136-145) mEq/L Potassium 3.4 L (3.5-5.1) mEq/L Chloride 107 (98-107) mEq/L Carbon Dioxide 22 L (23-29) mEq/L BUN 10 (6-20) mg/dL Creatinine 0.88 (0.60-1.20) mg/dL Glucose 97 (70-105) mg/dL Calcium 8.4 L (8.6-10.3) mg/dL All other labs normal. - Imaging CT scan - abdomen: report reviewed, image reviewed CT scan - pelvis: report reviewed, image reviewed Consult Discharge Plan - Plan Referrals: Yakelin Benavides, [employer] [Primary Care Provider] - <Milton Mcclure - Last Filed: 02/22/19 13:12> Date of Encounter: 02/22/19 - Assessment and Plan (1) Pyelonephritis Current Visit: Yes Status: Acute Assessment and plan: Patient seen and examined in conjunction with physician licensed sales assistant. Agree with assessment and plan. Patient requires 2 weeks of culture specific antibiotics. Bactrim double strength by mouth twice a day would be appropriate. After antibiotic completed will have patient follow in the urology office to recheck her urine and discuss proceeding with a VCUG. She had a history of a Deflux as a child and not a ureteral reimplantation. We discussed that the Deflux procedu re does not permanently resolve reflux but often allows the patient to "grow out of " the reflux. She is somewhat reluctant to proceed with the VCUG. We also discussed that it is possible she is experiencing a persistent infection rather than recurrent issues. Exam Initial Vital Signs Temp Pulse Resp BP Pulse Ox 98.4 F 114 15 115/75 100 02/20/19 19:04 02/20/19 19:04 02/20/19 19:04 02/20/19 19:04 02/20/19 19:04 Urology Results - Labs 02/22/19 05:13 02/22/19 05:13 Abnormal lab results WBC 14.1 K/mcL (4.3-11.1) H 02/22/19 05:13 Hgb 11.3 g/dL (11.5-15.4) L 02/21/19 05:05 MCHC 31.3 g/dL (31.6-35.5) L 02/22/19 05:13 10.4 K/mcL (1.6-8.9) H 02/22/19 05:13 0.4 K/mcL (0.6-4.6) L 02/20/19 20:30 1.6 K/mcL (0.0-1.3) H 02/21/19 05:05 Present (Not Present) A 02/21/19 05:05 Potassium 3.4 mEq/L (3.5-5.1) L 02/22/19 05:13 Chloride 109 mEq/L (98-107) H 02/21/19 05:05 Carbon Dioxide 22 mEq/L (23-29) L 02/22/19 05:13 BUN 25 mg/dL (6-20) H 02/20/19 20:30 1.54 mg/dL (0.60-1.20) H 02/21/19 05:05 Est GFR ( Amer) 52 (> 60) L 02/21/19 05:05 Est GFR (Non-Af Amer) 43 (> 60) L 02/21/19 05:05 Calcium 8.4 mg/dL (8.6-10.3) L 02/22/19 05:13 [place] (Yellow) A 02/20/19 20:11 Turbid (Clear) A 02/20/19 20:11 100 mg/dL (Neg-Trace) H 02/20/19 20:11 Trace mg/dL (Negative) H 02/20/19 20:11 Trace (Negative) H 02/20/19 20:11 Positive (Negative) A 02/20/19 20:11 Small (Negative) H 02/20/19 20:11 Ur Leukocyte Esterase Large (Negative) H 02/20/19 20:11 TNTC per hpf (0-3) H 02/20/19 20:11 Ur Squamous Epith Cells Many per lpf (None-Few) H 02/20/19 20:11 Moderate per hpf (None-Few) H 02/20/19 20:11 Ur Culture Indicated? YES (NO) A 02/20/19 20:11 Diabetes panel 02/22/19 Range/Units 05:13 Sodium 140 (136-145) mEq/L Potassium 3.4 L (3.5-5.1) mEq/L Chloride 107 (98-107) mEq/L Carbon Dioxide 22 L (23-29) mEq/L BUN 10 (6-20) mg/dL Creatinine 0.88 (0.60-1.20) mg/dL Glucose 97 (70-105) mg/dL Calcium 8.4 L (8.6-10.3) mg/dL Calcium panel 02/22/19 Range/Units 05:13 Calcium 8.4 L (8.6-10.3) mg/dL Pituitary panel 02/22/19 Range/Units 05:13 Sodium 140 (136-145) mEq/L Potassium 3.4 L (3.5-5.1) mEq/L Chloride 107 (98-107) mEq/L Carbon Dioxide 22 L (23-29) mEq/L BUN 10 (6-20) mg/dL Creatinine 0.88 (0.60-1.20) mg/dL Glucose 97 (70-105) mg/dL Calcium 8.4 L (8.6-10.3) mg/dL Adrenal panel 02/22/19 Range/Units 05:13 Sodium 140 (136-145) mEq/L Potassium 3.4 L (3.5-5.1) mEq/L Chloride 107 (98-107) mEq/L Carbon Dioxide 22 L (23-29) mEq/L BUN 10 (6-20) mg/dL Creatinine 0.88 (0.60-1.20) mg/dL Glucose 97 (70-105) mg/dL Calcium 8.4 L (8.6-10.3) mg/dL All other labs normal.
--- NOTE | 2019-02-22 14:37 | Internal Med Progress Note ---
<Diana Louis - Last Filed: 02/22/19 15:50> Hospitalist Progress Note - Encounter Date of Encounter: 02/22/19 Time of Encounter: 14:00 - Subjective Interval History: Pt feeling better than yesterday. Right sided back pain has improved. Ate a few bites of breakfast and of lunch, no nausea/vomiting at this time. No fevers. See n by urology earlier today, they would like her to complete a 2 week course of antibiotics and follow up with them as outpatient to recheck her urine and discuss possible VCUG then. - Exam Vitals: Temp Pulse Resp BP Pulse Ox 98.6 F 87 15 105/70 96 02/22/19 14:06 02/22/19 14:06 02/22/19 14:06 02/22/19 14:06 02/22/19 14:06 Exam: General: No acute distress, resting comfortably in bed HEENT: head normocephalic/atraumatic, moist mucus membranes Neck: Supple Cardio: RRR, no murmurs, +S1/S2 Pulm: CTAB, no wheezing. Normal respiratory effort. Abdomen: soft, nontender, active bowel sounds, non-distended Back: normal appearance on inspection, right lower back minimally tender to palpation Neuro: AAOx3, no focal deficits, CN II-XII grossly intact MSK: Strength 5/5 throughout, no visible deformities, no joint swelling Skin: clean, dry, intact Psych: Appropriate mood and affect. - Assessment and Plan (1) Acute pyelonephritis Current Visit: Yes Status: Acute Assessment and Plan: Resolving. Met sepsis criteria on admission with tachycardia and leukocytosis---tachycardia resolved, leukocytosis improving, afebrile throughout admission. WBC 20.7 on admission, trending downwards. UA positive for nitrites, leukocyte esterase, WBCs, bacteria. CT abdomen/pelvis shows perinephritic fat stranding on right consistent with pyelonephritis. 02/19 urine culture positive for trevino-sensitive E. coli. Repeat urine culture negative for growth, final. Blood cultures NGTD. Anticipate discharge to home tomorrow. Continue IVF until pt able to tolerate PO without nausea/vomiting. Continue rocephin for now (day 3), will transition to PO abx once able to reliably tolerate PO. Urology recommends 2 week course abx with outpatient follow up to recheck urine and discuss VCUG. (2) Acute renal failure Current Visit: Yes Status: Resolved Assessment and Plan: Resolved. Presented with Cr 2.42, trended down and now within normal range after receiving IVF. Elevated serum Cr in setting of pyelonephritis with sepsis and dehydration due to nausea/vomiting and decreased PO intake. Assessed by nephrology for ROJELIO, they are in agreement with IVF and IV abx. (3) Sepsis Current Visit: Yes Status: Suspected Assessment and Plan: Met sepsis criteria on admission with tachycardia and leukocytosis in setting of acute pyelonephritis---tachycardia resolved, leukocytosis improving, afebrile throughout admission. (4) History of vesicoureteral reflux Current Visit: Yes Status: Acute Assessment and Plan: s/p VUR repair at age 3. Urology will see pt in clinic with plans to discuss VCUG after acute pyelonephritis has resolved. DVT Prophylaxis: Antiembolic stockings - Time Spent with Patient Total time spent is greater than 50% in coordination of care (as documented) at patient's floor/unit and/or counseling patient: Plan of Care Discussed with: patient Internal Medicine: Result - Labs CBC & Chem 7: 02/22/19 05:13 02/22/19 05:13 Labs: Short CBC 02/22/19 Range/Units 05:13 WBC 14.1 H (4.3-11.1) K/mcL Hgb 12.0 (11.5-15.4) g/dL Hct 38.4 (35.3-44.9) % Plt Count 226 (140-400) K/mcL Neutrophils # 10.4 H (1.6-8.9) K/mcL BMP 02/22/19 05:13 Sodium 140 Potassium 3.4 L Chloride 107 Carbon Dioxide 22 L BUN 10 Creatinine 0.88 Glucose 97 Calcium 8.4 L Consult Discharge Plan - Plan Referrals: Yakelin Benavides, LILA [Primary Care Provider] - <Scott Hernandez - Last Filed: 02/22/19 16:22> Hospitalist Progress Note - Encounter Date of Encounter: 02/22/19 - Exam Vitals: Temp Pulse Resp BP Pulse Ox 98.6 F 87 15 105/70 96 02/22/19 14:06 02/22/19 14:06 02/22/19 14:06 02/22/19 14:06 02/22/19 14:06 - Assessment and Plan (1) Acute pyelonephritis Current Visit: Yes Status: Acute (2) Acute renal failure Current Visit: Yes Status: Resolved (3) Sepsis Current Visit: Yes Status: Suspected - Time Spent with Patient Total time spent is greater than 50% in coordination of care (as documented) at patient's floor/unit and/or counseling patient: Internal Medicine: Result - Labs CBC & Chem 7: 02/22/19 05:13 02/22/19 05:13 Labs: Short CBC 02/22/19 Range/Units 05:13 WBC 14.1 H (4.3-11.1) K/mcL Hgb 12.0 (11.5-15.4) g/dL Hct 38.4 (35.3-44.9) % Plt Count 226 (140-400) K/mcL Neutrophils # 10.4 H (1.6-8.9) K/mcL BMP 02/22/19 05:13 Sodium 140 Potassium 3.4 L Chloride 107 Carbon Dioxide 22 L BUN 10 Creatinine 0.88 Glucose 97 Calcium 8.4 L - Attending Attestation I examined this patient and my medical decision-making was reviewed with the Resident Physician. I agree with the documented findings, disposition and treatment plan as described except to the extent set forth below. Patient seen and examined at bedside. Patient states that she feels better today. She still reports nausea and does not know if she feels comfortable keeping down food. Denies any fevers or chills. On exam her heart is regular rate and rhythm, no murmurs, rubs, gallops. Abdomen is soft, nontender, nondistended. Acute pyelonephritis: Patient appears to be overall improving. She still concerned about a being able to take by mouth medication down therefore we will keep him overnight and discharged tomorrow. Continue symptomatic treatment as well as antibiotics with Rocephin. Urine culture positive for pansensitive Escherichia coli. <Diana Louis - Last Filed: 02/22/19 15:50> (2) Acute renal failure Qualifiers: Acute renal failure type: unspecified Qualified Code(s): N17.9 - Acute kidney failure, unspecified (3) Sepsis Qualifiers: Sepsis type: Escherichia coli Qualified Code(s): A41.51 - Sepsis due to Escherichia coli [E. coli] <Scott Hernandez - Last Filed: 02/22/19 16:22> (2) Acute renal failure Qualifiers: Acute renal failure type: unspecified Qualified Code(s): N17.9 - Acute kidney failure, unspecified (3) Sepsis Qualifiers: Sepsis type: Escherichia coli Qualified Code(s): A41.51 - Sepsis due to Escherichia coli [E. coli]
[2019-02-22] MEDS: traMADol 50 MG TABLET PO PRN (19:48)
--- NOTE | 2019-02-22 23:54 | Nephrology Progress Note ---
Date of Encounter: 02/22/19 Time of Encounter: 17:00 - Assessment and Plan (1) Acute kidney injury Current Visit: Yes Status: Acute SCr normalized at 0.88, GFR >60 Continue to avoid nephrotoxins if possible UOP noted [place] 1075cc in the past 24hrs Continue IVF Will signoff, please reconsult prn. Pt can followup with nephrology in 4-6 weeks after discharge (2) Acute pyelonephritis Current Visit: Yes Status: Acute Continue iv abx per primary team Urology consulted, recs appreciated (3) History of vesicoureteral reflux Current Visit: Yes Status: Acute As above Subjective Interval history: Pt seen and examined feeling alittle better with less flank pain but still reprots some fevers and headaches. Parents at bedside. Objective - Vital Signs Vital signs: Vital Signs Temp Pulse Resp BP Pulse Ox 02/22/19 17:27 99.1 F 82 15 104/71 98 02/22/19 14:06 98.6 F 87 15 105/70 96 02/22/19 10:42 98.8 F 81 15 114/76 96 02/22/19 08:15 96 02/22/19 06:59 98.7 F 89 15 119/75 93 02/22/19 04:46 98.5 F 86 16 110/73 98 Intake and Output 02/22/19 02/22/19 02/22/19 07:59 15:59 23:59 Intake Total 1100 / 2300 100 / 2300 1100 / 2300 Output Total 0 / 300 300 / 300 Balance 1100 / 2000 -200 / 2000 1100 / 2000 Intake: IV Fluids 1100 / 2300 100 / 2300 1100 / 2300 0.9 % Sodium Chloride 1,000 ML 1000 / 2000 1000 / 2000 @ 80 mls/hr IVC .[id number] RG Rx #:[id number] Ofirmev 1,000 mg/100 ml 1,000 100 / 300 100 / 300 100 / 300 mg In 100 ml @ 400 mls/hr IVPB Q6HR RG Rx#:[id number] Oral 0 / 0 Output: Urine 0 / 300 300 / 300 Other: # Voids 1 - General Appearance General appearance: Present: well-developed, well-nourished (Mild distress due to MIMS) EENT: Present: ATNC, mucous membranes moist Neck: Present: no JVD, supple Respiratory: Present: clear (ant bilat) Cardiology: Present: no edema, normal S1, normal S2 Gastrointestinal: Present: no tenderness, no guarding Integumentary: Present: warm and dry Neurologic: Present: no focal deficit Musculoskeletal: Present: no deformities Psychiatric: Present: mood/affect appropriate - Lab 02/22/19 05:13 02/22/19 05:13 Consult Discharge Plan - Plan Referrals: Yakelin Benavides, LILA [Primary Care Provider] -
[2019-02-23] MEDS: traMADol 50 MG TABLET PO PRN (03:10)
[2019-02-23] MEDS: *HR* Promethazine 25 MG/ML VIAL IVP PRN ×2 (03:10→14:03)
[2019-02-23] MEDS: Acetaminophen IV 1,000 MG/100 ML INFUS..BTL IVPB SCH (05:19)
[2019-02-23] MEDS: cefTRIAXone 2,000 MG in Water for inj. (sterile) 20 ML IVP SCH (07:45)
[2019-02-23 08:06] LABS: Basophils % 0.2 %; Eosinophils % 0.5 %; Hematocrit 36.7 % (35.3-44.9); Hemoglobin 11.6 g/dL (11.5-15.4); Immature Platelets 3.4 % (1.1-6.1); Lymphocytes # 1.9 K/mcL (0.6-4.6); Lymphocytes % 21.2 %; Mean Corpuscular HGB Conc 31.6 g/dL (31.6-35.5); Mean Corpuscular Hemoglobin 28.8 pg (28.0-33.3); Mean Corpuscular Volume 91.1 fL (83.0-100.0); Mean Platelet Volume 10.5 fL (9.4-12.4); Monocytes # 0.9 K/mcL (0.0-1.3); Monocytes % 10.6 %; Neutrophils # 5.8 K/mcL (1.6-8.9); Platelet Count 227 K/mcL (140-400); Red Blood Count 4.03 M/mcL (3.82-4.97); Red Cell Distribution Width 13.5 % (11.5-14.5); Segmented Neutrophils % 66.5 %; White Blood Count 8.8 K/mcL (4.3-11.1)
--- NOTE | 2019-02-23 08:56 | Discharge Summary ---
<Scott Hernandez - Last Filed: 02/23/19 14:37> Orders not resulted at time of discharge: Pending orders 02/20/19 23:13 Culture,Blood [BC] Stat Date of Encounter: 02/23/19 - Discharge Diagnosis (1) Acute pyelonephritis Status: Acute (2) Acute renal failure Status: Resolved Qualifiers: Acute renal failure type: unspecified Qualified Code(s): N17.9 - Acute kidney failure, unspecified (3) Sepsis Status: Suspected Qualifiers: Sepsis type: Escherichia coli Qualified Code(s): A41.51 - Sepsis due to Escherichia coli [E. coli] Hospital course: Ms. Smith is a 18 year old female - Time Spent with Patient Total time spent providing and/or coordinating discharge services: - Discharge Medications Prescriptions: New Ciprofloxacin [Cipro] 500 mg PO BID 11 Days #22 tablet Tramadol HCl [Ultram] 50 mg PO BID PRN 3 Days #6 tab PRN Reason: moderate to severe pain Continued Acetaminophen [Tylenol] 1,000 mg PO Q4H PRN PRN Reason: Pain Norgestimate-Ethinyl Estradiol [Sprintec 28 Day Tablet] 1 tab PO DAILY Cetirizine HCl [Zyrtec] 10 mg PO DAILY Ibuprofen [Ibu-200] 800 mg PO Q8H PRN PRN Reason: Pain Phenazopyridine [Pyridium] 200 mg PO TID PRN PRN Reason: URINARY PAIN Ondansetron ODT [Zofran ODT] 4 mg SL QID PRN 2 Days #8 tab.rapdis PRN Reason: Nausea Discontinued Ciprofloxacin HCl [Cipro] 500 mg PO BID Home Medications: Acetaminophen [Tylenol] 1,000 mg PO Q4H PRN 02/20/19 [History] Norgestimate-Ethinyl Estradiol [Sprintec 28 Day Tablet] 1 tab PO DAILY 02/20/19 [History] Cetirizine HCl [Zyrtec] 10 mg PO DAILY 02/21/19 [History] Ibuprofen [Ibu-200] 800 mg PO Q8H PRN 02/21/19 [History] Phenazopyridine [Pyridium] 200 mg PO TID PRN 02/21/19 [History] Ciprofloxacin [Cipro] 500 mg PO BID 11 Days #22 tablet 02/23/19 [Rx] Ondansetron ODT [Zofran ODT] 4 mg SL QID PRN 2 Days #8 tab.rapdis 02/23/19 [Rx] Tramadol HCl [Ultram] 50 mg PO BID PRN 3 Days #6 tab 02/23/19 [Rx] Allergies/Adverse Reactions: Allergy/AdvReac Type Severity Reaction Status Date / Time No Known Allergies Allergy Verified 02/21/19 08:26 Date of admission: 02/20/19 21:26 Primary care physician: Yakelin Benavides, Consults: 02/21/19 10:30 Consult to Nephrology [CONS] Routine Consulting Provider: Kidney White/ALLI/CHRIS/RAFAL Reason for Consult: Admitted with pyelonephritis; Hx of vesicoureteral reflux s/p surgical correction; Reports multiple UTIs in the past few years Call Completed: Yes 02/21/19 18:03 Consult to Urology [CONS] Routine Consulting Provider: Urology Catie Reason for Consult: Admitted for pyelonephritis; Hx of vesicoureteral reflux s/p repair at age 3; Multiple UTIs over the past 2-[address] Mcclure Time Notified: 18:04 Call Completed: Yes - Constitutional Vitals: Temp Pulse Resp BP Pulse Ox 100.3 F H 80 16 104/69 96 02/23/19 14:10 02/23/19 11:47 02/23/19 11:47 02/23/19 11:47 02/23/19 11:47 - Patient Status Disposition: Home, Self-Care Condition: Fair - Discharge Instructions Instructions: Acute Pyelonephritis (DC) Follow Up With: Yakelin Benavides CNP [Primary Care Provider] - Jose Dumas MD [Partnered Physician] - 04/05/19 3:30 pm Milton Mcclure MD [Partnered Physician] - 03/15/19 10:15 am - Attending Attestation I examined this patient and my medical decision-making was reviewed with the Resident Physician. I agree with the documented findings, disposition and treatment plan as described except to the extent set forth below. Patient seen and examined at bedside. Patient states that she feels much better today. She states her nausea is nearly resolved and only has minimal pain. She is able to tolerate by mouth medication as well as by mouth solids and liquids. On exam her heart is regular rate and rhythm, no murmurs, rubs, gallops. Abdomen is soft, nontender, nondistended. Acute pyelonephritis: Patient appears much improved. Urine culture positive for pansensitive Escherichia coli. Transitioned to by mouth ciprofloxacin for a total 14 more days as recommended by urology. Has history of vesicular ureteral reflux that was repaired surgically as a child, urology will follow up with the patient for further testing to determine whether she needs further surgical intervention. Patient is able to tolerate by mouth medications, food, liquids. Patient will be discharged home in stable condition. <Roxana Mckeon - Last Filed: 02/23/19 15:26> - NOTES TO OUTPATIENT PROVIDER Notes to Outpatient Provider: - Please follow up with her primary care provider within one week of discharge. - Please follow-up with urology as scheduled appointment within 3 weeks. - Please follow up with nephrology as scheduled appointment in a month. - Please continue ciprofloxacin 500 mg twice a day beginning tomorrow for 11 more days until 03/06/19. - Please take Tylenol as needed for [id number] pain. Preserved taking tramadol as needed only for severe pain. Continue with sublingual Zofran as needed for nausea. Orders not resulted at time of discharge: Pending orders 02/20/19 23:13 Culture,Blood [BC] Stat 02/23/19 07:29 BMP [Basic Metabolic Panel] AM 0400 Date of Encounter: 02/23/19 Time of Encounter: 08:56 - Discharge Diagnosis (1) Pyelonephritis Priority: Primary Status: Acute (2) Sepsis Priority: Secondary Status: Suspected Qualifiers: Sepsis type: Escherichia coli Qualified Code(s): A41.51 - Sepsis due to Escherichia coli [E. coli] (3) Acute kidney injury Priority: Secondary Status: Acute (4) History of vesicoureteral reflux Priority: Secondary Status: Acute (5) DVT prophylaxis Priority: Secondary Status: Acute Hospital course: Ms. Smith is a 18 year old female with past medical history significant for vesicoureteral reflux status post repair at age 3 who initially presented complaining of 4 days of urinary urgency, frequency which have progressed to right flank pain, fevers/chills, nausea, vomiting. Patient had visited urgent care due to symptoms of UTI and was prescribed ciprofloxacin. However patient was unable to tolerate by mouth antibiotics. In the ED, patient was notably tachycardic with leukocytosis = 20.7. Initial urinalysis did show orange, turbid urine with positive nitrites, positive leukocyte esterase, positive urine bacteria. Additionally CT of abdomen and pelvis was consistent with right-sided pyelonephritis. No renal abscess was seen. Patient did have signs of acute kidney injury with BUN/Cr = 25/2.42. She is initially started on IV Rocephin and IV fluids and admitted for further management of pyelonephritis. Both nephrology and urology were consulted. Nephrology was consulted given patient's acute kidney injury. ROJELIO did improve with IV fluids and hydration. Leukocytosis did improve with antibiotics. Urology was consulted given patient's history of vesicoureteral reflux. They do plan to follow up with patient outpatient. May consider a voiding cystourethrogram outpatient. Otherwise, recommended a 2 week course of antibiotics given patient's history of multiple UTIs. At time of discharge, patient reports significant improvement from admission. States that she is able to tolerate diet, and has only had mild nausea since then. Otherwise, denies any significant abdominal pain. Notes from mild right flank tenderness was also improved, and denies any suprapubic abdominal pain. Vitals have remained hemodynamically stable. Patient is stable for discharge. Discharge discussed with: patient, family - Time Spent with Patient Total time spent providing and/or coordinating discharge services: Time spent: Less than 30 minutes, D/C greater than 8 hours after Admission Date of admission: 02/20/19 21:26 Primary care physician: Yakelin Benavides, Consults: 02/21/19 10:30 Consult to Nephrology [CONS] Routine Consulting Provider: Kidney White/ALLI/CHRIS/RAFAL Reason for Consult: Admitted with pyelonephritis; Hx of vesicoureteral reflux s/p surgical correction; Reports multiple UTIs in the past few years Call Completed: Yes 02/21/19 18:03 Consult to Urology [CONS] Routine Consulting Provider: Urology Catie Reason for Consult: Admitted for pyelonephritis; Hx of vesicoureteral reflux s/p repair at age 3; Multiple UTIs over the past 2-[address] Mcclure Time Notified: 18:04 Call Completed: Yes Discharging clinician: Roxana Mckeon Anticipated date of discharge: 02/23/19 - Constitutional Vitals: Temp Pulse Resp BP Pulse Ox 99.3 F 99 18 103/69 96 02/23/19 07:11 02/23/19 07:11 02/23/19 07:11 02/23/19 07:11 02/23/19 07:11 General appearance: Present: cooperative, A&O X 3, pleasant, no acute distress, answers questions appropriately Exam: This is a pleasant 18-year-old female who is resting comfortably in bed. She is accompanied by her mother. Vitals are stable. No acute distress at this time. - Head Head exam: Present: atraumatic, normal inspection, normocephalic - Eye Eye exam: Present: EOMI - ENT ENT exam: Present: mucous membranes moist - Neck Neck exam general surgery: Present: full ROM, supple - Respiratory Respiratory exam: Present: CTAB. Absent: respiratory distress, wheezes, tachypnea - Cardiovascular Cardiovascular exam: Present: RRR, +S1, +S2 - GI/Abdominal GI/Abdominal exam: Present: normal bowel sounds, no peritoneal signs. Absent: tenderness (No suprapubic tenderness.) Additional comments: Only mild right flank tenderness. - Expanded GI/Abdominal Exam GI/Abdominal exam expanded: Absent: Walden's sign, Rovsing's sign, tenderness at McBurney's Point - Extremities Exam Extremities exam: Present: normal inspection, warm, radial pulses palpable and symmetrical. Absent: calf tenderness - Neurological Exam Neurological exam: Present: alert, no focal deficits - Psychiatric Psychiatric exam: Present: normal affect, normal mood - Skin Skin exam: Absent: rash - Patient Status Functional capacity at discharge: independent ambulation Overall status at discharge: patient is progressing back to baseline - Diet and Activity Activity: increase activity as tolerated Diet: advance to your usual diet
[2019-02-23 09:19] LABS: BUN/Creatinine Ratio 9 (6-26); Blood Urea Nitrogen 7 mg/dL (6-20); Calcium 7.7 mg/dL (8.6-10.3); Carbon Dioxide 21 mEq/L (23-29); Chloride 111 mEq/L (98-107); Glucose 90 mg/dL (70-105); Osmolality,Calculated 290 (280-300); Potassium 3.6 mEq/L (3.5-5.1); Sodium 141 mEq/L (136-145); eGFR For African Americans > 60 (> 60); eGFR For Non-African Americans > 60 (> 60)
[2019-02-23] MEDS ORDERED: Acetaminophen 325 MG TABLET PO PRN (14:27)
[2019-02-23 15:33] VITALS: BP 113/75
== END 2019-02-23 17:32 | disposition home or self-care (01) ==
LOC: EMEROOARM 19:00 → 3ANU 19:00 → SUATTDRO 21:26 → 3ANU 21:43
PROVIDERS: ADMIT Internal Medicine; ATTEND Internal Medicine